=== PATIENT | male | born 1985 | race Caucasian/White ===

== ENCOUNTER 2022-04-03 14:26 | Emergency (ER) | payer BC, SELFPAY ==
[2022-04-03 14:43] VITALS: BP 192/106; PULSE 84; RESP 18; TEMP 36.2; O2SAT 97; BMI 37.2
--- NOTE | 2022-04-03 16:28 | W.ED.WEAKNES ---
Documented by User: CHANDNI Chavez 04/04/22 08:06 HPI - Weakness General: Chief complaint: Weakness Stated complaint: GENERAL WEAKNESS Time Seen by Provider: 04/03/22 16:26 History of Present Illness: Patient is a 36-year-old male comes to the ED via EMS for weakness. Patient was outside working today in the heat. Patient said he was sweating profusely today. While working he became very hot and weak and then got dizzy and nauseous and had an episode of emesis. He endorses having some aching muscle pain in his thighs and upper arms bilaterally. He says he had an energy drink this morning before work and then drank a couple bottles of water earlier in the morning. While in the waiting room here in the ED he tried to drink some water and he felt nauseous afterwards. Denies any chest pain, shortness of breath, syncopal episode or abdominal pain. Associated symptoms: Reports nausea and vomiting; Denies chest pain, chills, dysuria, fever(s) or headache(s) Review of Systems Const: Reports: fatigue; Denies: fever(s) or chills Eyes: Denies: change in vision or eye discomfort ENMT: Denies: throat pain, odynophagia, nasal discharge or nasal congestion Card: Denies: chest pain, palpitations, edema, swelling of feet/ankles, dyspnea on exertion or orthopnea Resp: Denies: dyspnea, productive cough or non-productive cough GI: Reports: nausea and vomiting; Denies: abdominal pain, diarrhea, constipation or hematochezia : Denies: flank pain, difficulty urinating, dysuria or hematuria Musc: Denies: neck pain, back pain or extremity swelling Skin/Breast: Denies: rash or new lesions Neuro: Denies: headache(s), numbness in extremities or weakness in extremities PFS ED PFSH: Medical History No pertinent past medical history Surgical History No pertinent past surgical history Physical Exam Const: COMMON NORMALS: patient oriented x3 and alert GENERAL APPEARANCE: cooperative HENMT: COMMON NORMALS: normocephalic HEAD & SCALP: normocephalic MOUTH: Normal oral and palatal mucosa present THROAT: posterior oropharynx normal and uvula midline Eye: COMMON NORMALS: Equal, round and reactive pupils present and conjunctivae normal CONJUNCTIVA: Yes conjunctivae normal PUPIL: Yes Equal, round and reactive pupils present Neck/C-Spine: COMMON NORMALS: supple GENERAL: Yes normal visual inspection Resp: COMMON NORMALS: normal respiratory effort, No retractions, No use of accessory muscles and clear to auscultation bilaterally AUSCULTATION: clear to auscultation bilaterally Cardio: COMMON NORMALS: regular rate, regular rhythm, S1 normal heart sound present, S2 normal heart sound present, No gallops present (Cardio), No clicks present (Cardio), No murmurs present (Cardio) and Peripheral pulses 2+ throughout RATE: regular rate RHYTHM: regular rhythm HEART SOUNDS: S1 normal heart sound present and S2 normal heart sound present PERIPHERAL PULSES: Peripheral pulses 2+ throughout GI: COMMON NORMALS: Normal to inspection, nondistended, normoactive bowel sounds present, Soft to palpation, non-tender and no masses PALPATION: Yes Soft to palpation : COMMON NORMALS: Yes no CVA tenderness BLADDER/KIDNEY EXAM: Yes no CVA tenderness Back/Pelvis: COMMON NORMALS: no CVA tenderness Extremity: COMMON NORMALS: normal to inspection Neuro: COMMON NORMALS: patient oriented x3 and moves all extremities SENSORIUM/ORIENTATION: Yes alert Skin: GENERAL SKIN EXAM: dry skin Course ED course: I performed the initial history physical exam and lab work-up of patient. Patient likely had an episode of heat exhaustion and 1 L of IV fluids along with Zofran were given. At the end of my shift patient's labs and IV fluids had not been started yet. I discussed the case with oncoming midlevel [facility] [employer]. I told him labs are pending and IV fluids and nausea meds ordered on patient. Patient was then signed over to [facility] for further care and dispo plan. Sandoval Epps PA-C Vital Signs: Vital signs: Vital Signs Temperature 97.2 F L 04/03/22 14:43 Pulse Rate 66 04/03/22 19:44 Respiratory Rate 18 04/03/22 14:43 Blood Pressure 165/88 04/03/22 19:44 Pulse Oximetry 96 04/03/22 19:44 MDM - Weakness Lab Data I reviewed the patient's lab results. : 04/03/22 16:52 04/03/22 16:52 Laboratory Results WBC 19.5 10^3/uL (4.0-10.0) H 04/03/22 16:52 RBC 5.64 10^6/uL (4.1-5.3) H 04/03/22 16:52 Hgb 16.6 g/dL (11.7-16.6) 04/03/22 16:52 Hct 47.9 % (42.0-52.0) 04/03/22 16:52 MCV 84.9 fl (80-94) 04/03/22 16:52 MCH 29.4 pg (28.0-34.0) 04/03/22 16:52 MCHC 34.7 g/dL (30.0-36.0) 04/03/22 16:52 RDW 13.0 % (12.1-15.1) 04/03/22 16:52 Plt Count 294 10^3/cmm (130-400) 04/03/22 16:52 MPV 10.4 fL (7.4-10.4) 04/03/22 16:52 Neut % (Auto) 90.4 % 04/03/22 16:52 Lymph % (Auto) 3.7 % 04/03/22 16:52 Bledsoe % (Auto) 5.0 % 04/03/22 16:52 Eos % (Auto) 0.1 % 04/03/22 16:52 Baso % (Auto) 0.4 % 04/03/22 16:52 Neut # (Auto) 17.64 10^3/uL (1.8-7.7) H 04/03/22 16:52 Lymph # (Auto) 0.7 10^3/uL (0.8-4.8) L 04/03/22 16:52 Bledsoe # (Auto) 1.0 10^3/uL (0.2-0.9) H 04/03/22 16:52 Eos # (Auto) 0.0 10^3/uL (0.0-0.8) 04/03/22 16:52 Baso # (Auto) 0.1 10^3/uL (0.0-0.1) 04/03/22 16:52 Nucleated RBC % (auto) 0 % 04/03/22 16:52 Nucleated RBCs # 0.0 /100WBC 04/03/22 16:52 Sodium 138 mmol/L (136-145) 04/03/22 16:52 Potassium 3.8 mmol/L (3.5-5.1) 04/03/22 16:52 Chloride 102 mmol/L (98-107) 04/03/22 16:52 Carbon Dioxide 24 mmol/L (22-29) 04/03/22 16:52 Anion Gap 15.8 (5-19) 04/03/22 16:52 BUN 15 mg/dL (6-20) 04/03/22 16:52 Creatinine 0.8 mg/dL (0.7-1.2) 04/03/22 16:52 GFR Calculation 110.7 mL/min (90-130) 04/03/22 16:52 Glucose 112 mg/dL (65-115) 04/03/22 16:52 Calculated Osmolality 288 mOsm/kg (285-295) 04/03/22 16:52 Calcium 9.5 mg/dL (8.5-10.5) 04/03/22 16:52 Total Bilirubin 0.6 mg/dL (0.15-1.2) 04/03/22 16:52 AST 23 U/L (0-40) 04/03/22 16:52 ALT 31 U/L (0-41) 04/03/22 16:52 Alkaline Phosphatase 74 IU/L (40-130) 04/03/22 16:52 Creatine Kinase 127 U/L (39-308) 04/03/22 16:52 Total Protein 7.5 g/dL (6.6-8.7) 04/03/22 16:52 Albumin 4.8 g/dL (3.5-5.2) 04/03/22 16:52 Globulin 2.7 g/dL (1.3-4.6) 04/03/22 16:52 Lipase 24 U/L (13-60) 04/03/22 16:52 Urine Color Yellow (Yellow) 04/03/22 17:39 Urine Appearance Sl hazy (CLEAR) 04/03/22 17:39 Urine pH 8 (5-7) H 04/03/22 17:39 Ur Specific [place] 1.020 (1.005-1.030) 04/03/22 17:39 Urine Protein Neg (Negative) 04/03/22 17:39 Urine Glucose (UA) Norm (Normal) 04/03/22 17:39 Urine Ketones Negative (Negative) 04/03/22 17:39 Urine Blood Neg (Negative) 04/03/22 17:39 Urine Nitrate Negative (Negative) 04/03/22 17:39 Urine Bilirubin Neg (Negative) 04/03/22 17:39 Prot Sulfosalicylic Acd Negative (Negative) 04/03/22 17:39 Urine Urobilinogen Norm mg/dL (Negative) 04/03/22 17:39 Ur Leukocyte Esterase Negative (Negative) 04/03/22 17:39 Discharge Plan Discharge Patient Disposition: Home Clinical Impression: Heat exhaustion, unspecified, initial encounter Condition: Stable Prescriptions: New ondansetron 4 mg tablet,disintegrating 4 mg PO Q8H PRN (Reason: nausea and vomiting) Qty: 7 0RF No Action omeprazole 20 mg Capsule,Delayed Release(Dr/Ec) 20 mg PO DAILY 0RF Zyrtec 10 mg Capsule 10 mg PO DAILY 0RF Discharge Orders: Discharge ED (Routine); Ordered 04/03/22 Ordered By: Jose M Landers Activity Restrictions/Additional Instructions: Make sure to stay well-hydrated. For every 8 ounces of Gatorade need to have 8 ounces of water. Healthy diet and activity is important. Follow-up with primary care in 1 week for recheck of labs. Continue with routine care otherwise as directed. Return to ER for worsening symptoms or new concerns. Stand Alone Forms: Work/School Release Sign Out Sign Out Data: Patient Sign Out occurred on 04/03/22 at 17:13. Patient's care was discussed, and care was transferred from to Jose M Landers. Coding Level of Care Code ED [employer] for Chg Fwd Exam Comprehensive Documented by User: [email or web address] Rios 04/03/22 18:45 HPI - Weakness General: Chief complaint: Weakness Stated complaint: GENERAL WEAKNESS Time Seen by Provider: 04/03/22 16:26 PFSH ED PFSH: Medical History No pertinent past medical history Surgical History No pertinent past surgical history Course Vital Signs: Vital signs: Vital Signs Temperature 97.2 F L 04/03/22 14:43 Pulse Rate 66 04/03/22 19:44 Respiratory Rate 18 04/03/22 14:43 Blood Pressure 165/88 04/03/22 19:44 Pulse Oximetry 96 04/03/22 19:44 MDM - Weakness Medical Decision Making 86-year-old male patient comes in today for complaints of nausea vomiting, fatigue, dizziness, and being overheated. Patient was working outside today and started feeling sick to his stomach and lightheaded and threw up 2 or 3 times. Patient was able to sit down in the cool air conditioning and felt a little bit better but was concerned enough to call EMS. Patient on arrival was alert and oriented but reports feeling poorly. With body aches. Respirations were even lungs were clear to auscultation. Pulses were positive throughout. No CVA tenderness. Abdomen soft nontender. Skin was warm and dry. Patient was flushed. Differential diagnosis includes heat exhaustion, dehydration, rhabdomyolysis. CBC had an elevated white count 19,000, CMP was unremarkable, urinalysis was unremarkable. CPK was normal. Believe patient probably had an episode of heat exhaustion. Patient was given fluids and meds for pain and nausea. Recommended patient follow-up with primary care in 1 week for recheck. Reviewed methods of maintaining fluid hydration and avoiding the heat. Patient reported understanding and agreed to plan. Lab Data : 04/03/22 16:52 04/03/22 16:52 Laboratory Results WBC 19.5 10^3/uL (4.0-10.0) H 04/03/22 16:52 RBC 5.64 10^6/uL (4.1-5.3) H 04/03/22 16:52 Hgb 16.6 g/dL (11.7-16.6) 04/03/22 16:52 Hct 47.9 % (42.0-52.0) 04/03/22 16:52 MCV 84.9 fl (80-94) 04/03/22 16:52 MCH 29.4 pg (28.0-34.0) 04/03/22 16:52 MCHC 34.7 g/dL (30.0-36.0) 04/03/22 16:52 RDW 13.0 % (12.1-15.1) 04/03/22 16:52 Plt Count 294 10^3/cmm (130-400) 04/03/22 16:52 MPV 10.4 fL (7.4-10.4) 04/03/22 16:52 Neut % (Auto) 90.4 % 04/03/22 16:52 Lymph % (Auto) 3.7 % 04/03/22 16:52 Bledsoe % (Auto) 5.0 % 04/03/22 16:52 Eos % (Auto) 0.1 % 04/03/22 16:52 Baso % (Auto) 0.4 % 04/03/22 16:52 Neut # (Auto) 17.64 10^3/uL (1.8-7.7) H 04/03/22 16:52 Lymph # (Auto) 0.7 10^3/uL (0.8-4.8) L 04/03/22 16:52 Bledsoe # (Auto) 1.0 10^3/uL (0.2-0.9) H 04/03/22 16:52 Eos # (Auto) 0.0 10^3/uL (0.0-0.8) 04/03/22 16:52 Baso # (Auto) 0.1 10^3/uL (0.0-0.1) 04/03/22 16:52 Nucleated RBC % (auto) 0 % 04/03/22 16:52 Nucleated RBCs # 0.0 /100WBC 04/03/22 16:52 Sodium 138 mmol/L (136-145) 04/03/22 16:52 Potassium 3.8 mmol/L (3.5-5.1) 04/03/22 16:52 Chloride 102 mmol/L (98-107) 04/03/22 16:52 Carbon Dioxide 24 mmol/L (22-29) 04/03/22 16:52 Anion Gap 15.8 (5-19) 04/03/22 16:52 BUN 15 mg/dL (6-20) 04/03/22 16:52 Creatinine 0.8 mg/dL (0.7-1.2) 04/03/22 16:52 GFR Calculation 110.7 mL/min (90-130) 04/03/22 16:52 Glucose 112 mg/dL (65-115) 04/03/22 16:52 Calculated Osmolality 288 mOsm/kg (285-295) 04/03/22 16:52 Calcium 9.5 mg/dL (8.5-10.5) 04/03/22 16:52 Total Bilirubin 0.6 mg/dL (0.15-1.2) 04/03/22 16:52 AST 23 U/L (0-40) 04/03/22 16:52 ALT 31 U/L (0-41) 04/03/22 16:52 Alkaline Phosphatase 74 IU/L (40-130) 04/03/22 16:52 Creatine Kinase 127 U/L (39-308) 04/03/22 16:52 Total Protein 7.5 g/dL (6.6-8.7) 04/03/22 16:52 Albumin 4.8 g/dL (3.5-5.2) 04/03/22 16:52 Globulin 2.7 g/dL (1.3-4.6) 04/03/22 16:52 Lipase 24 U/L (13-60) 04/03/22 16:52 Urine Color Yellow (Yellow) 04/03/22 17:39 Urine Appearance Sl hazy (CLEAR) 04/03/22 17:39 Urine pH 8 (5-7) H 04/03/22 17:39 Ur Specific [place] 1.020 (1.005-1.030) 04/03/22 17:39 Urine Protein Neg (Negative) 04/03/22 17:39 Urine Glucose (UA) Norm (Normal) 04/03/22 17:39 Urine Ketones Negative (Negative) 04/03/22 17:39 Urine Blood Neg (Negative) 04/03/22 17:39 Urine Nitrate Negative (Negative) 04/03/22 17:39 Urine Bilirubin Neg (Negative) 04/03/22 17:39 Prot Sulfosalicylic Acd Negative (Negative) 04/03/22 17:39 Urine Urobilinogen Norm mg/dL (Negative) 04/03/22 17:39 Ur Leukocyte Esterase Negative (Negative) 04/03/22 17:39 Discharge Plan Discharge Patient Disposition: Home Clinical Impression: Heat exhaustion, unspecified, initial encounter Condition: Stable Prescriptions: New ondansetron 4 mg tablet,disintegrating 4 mg PO Q8H PRN (Reason: nausea and vomiting) Qty: 7 0RF No Action omeprazole 20 mg Capsule,Delayed Release(Dr/Ec) 20 mg PO DAILY 0RF Zyrtec 10 mg Capsule 10 mg PO DAILY 0RF Discharge Orders: Discharge ED (Routine); Ordered 04/03/22 Ordered By: Jose M Landers Activity Restrictions/Additional Instructions: Make sure to stay well-hydrated. For every 8 ounces of Gatorade need to have 8 ounces of water. Healthy diet and activity is important. Follow-up with primary care in 1 week for recheck of labs. Continue with routine care otherwise as directed. Return to ER for worsening symptoms or new concerns. Stand Alone Forms: Work/School Release Sign Out Sign Out Data: Patient Sign Out occurred on 04/03/22 at 17:13. Patient's care was discussed, and care was transferred from to Jose M Landers. Coding Level of Care Code ED [employer] for Josefinag Fwd Exam Comprehensive
[2022-04-03 16:49] VITALS: BP 153/93; PULSE 74; O2SAT 96
[2022-04-03 17:00] VITALS: BP 153/93; PULSE 80; O2SAT 97
[2022-04-03] MEDS: ondansetron 2 mg/ML SDV 2 mL 4 MG IVP (17:01)
[2022-04-03] MEDS: sodium chloride 0.9% 1,000 ML 999 ML IV ×2 (17:02→18:30)
[2022-04-03] MEDS: ketorolac 30 mg/mL INJ IVP (17:02)
[2022-04-03 17:27] LABS: Basophils # 0.1 10^3/uL (0.0-0.1); Basophils % 0.4 %; Eosinophils % 0.1 %; Hematocrit 47.9 % (42.0-52.0); Hemoglobin 16.6 g/dL (11.7-16.6); Lymphocytes # 0.7 10^3/uL (0.8-4.8); Lymphocytes % 3.7 %; Mean Corpuscular HGB Conc 34.7 g/dL (30.0-36.0); Mean Corpuscular Hemoglobin 29.4 pg (28.0-34.0); Mean Corpuscular Volume 84.9 fl (80-94); Mean Platelet Volume 10.4 fL (7.4-10.4); Neutrophils # 17.64 10^3/uL (1.8-7.7); Neutrophils % 90.4 %; Nucleated Red Blood Cells % 0 %; Platelet Count 294 10^3/cmm (130-400); Red Blood Count 5.64 10^6/uL (4.1-5.3); White Blood Count 19.5 10^3/uL (4.0-10.0)
[2022-04-03 17:38] LABS: Alanine Aminotransferase 31 U/L (0-41); Albumin Level 4.8 g/dL (3.5-5.2); Alkaline Phosphatase 74 IU/L (40-130); Aspartate Amino Transferase 23 U/L (0-40); Blood Urea Nitrogen 15 mg/dL (6-20); Calcium 9.5 mg/dL (8.5-10.5); Carbon Dioxide 24 mmol/L (22-29); Chloride 102 mmol/L (98-107); Globulin 2.7 g/dL (1.3-4.6); Glomerular Filtration Rate 110.7 mL/min (90-130); Glucose 112 mg/dL (65-115); Lipase 24 U/L (13-60); Osmolality Calculated 288 mOsm/kg (285-295); Sodium 138 mmol/L (136-145); Total Bilirubin 0.6 mg/dL (0.15-1.2); Total Protein 7.5 g/dL (6.6-8.7)
[2022-04-03 17:44] LABS: Anion Gap 15.8 (5-19); Potassium 3.8 mmol/L (3.5-5.1)
[2022-04-03 17:45] LABS: Add Urine Microscopic? NO; Charge for UA Resulting for Rev
[2022-04-03 17:59] LABS: Creatine Phosphokinase 127 U/L (39-308)
[2022-04-03 18:00] VITALS: BP 175/106; O2SAT 96
[2022-04-03 18:31] LABS: Urine Appearance SL Hazy (CLEAR); Urine Color Yellow (Yellow); pH Urine 8 (5-7)
[2022-04-03 18:32] LABS: Bilirubin Urine Neg (Negative); Blood Urine Neg (Negative); Glucose Urine UA Norm (Normal); Ketones Urine Negative (Negative); Leukocyte Esterase Urine Negative (Negative); Nitrate Urine Negative (Negative); Protein Urine Neg (Negative); Sulfosalicylic Acid Urine Negative (Negative); Urobilinogen Urine Norm (Negative)
[2022-04-03 19:00] VITALS: BP 151/104; PULSE 66; O2SAT 98
[2022-04-03 19:44] VITALS: BP 165/88; PULSE 66; O2SAT 96
== END 2022-04-03 19:36 | disposition home or self-care (01) ==
PROVIDERS: Physician Assistant; Emergency Provider Nurse Practitioner Family
DX: T67.5XXA Heat exhaustion, unspecified, initial encounter (principal); X30.XXXA Exposure to excessive natural heat, initial encounter
CPT/HCPCS: 80053; 81003; 82550; 83690; 85025; 96361; 96374; 96375; 99284; J1885; J2405; J7030